=== PATIENT | female | born 1985 | race Caucasian/White ===

== ENCOUNTER 2018-01-31 13:56 | Emergency (ER) | payer OTHER ==
[~2018-01-31] VITALS: Ht 170.2 cm; Wt 145.0 kg
[2018-01-31 14:12] VITALS: TEMP 37; Ht 170.2 cm; Wt 145.0 kg
--- NOTE | 2018-01-31 14:35 | EMERGENCY ROOM VISIT NOTE ---
ED Visit Note First contact with patient: 14:19 CHIEF COMPLAINT: Left leg pain HISTORY OF PRESENT ILLNESS: This 32-year-old female patient presents to the emergency department, ambulatory, complaining of pain in the posterior left thigh. The patient states the pain began on Saturday. She states it radiates into her groin and down to the proximal calf. She describes it as "like a charley horse" the patient denies any history of the same. She denies any history of blood clots. She did recently travel to the [facility], 9 hours in each direction and returned on Saturday. She has been taking Aleve and diclofenac without relief of her symptoms. She states that the symptoms occasionally improved with standing, but sitting and lying flat seems to make the symptoms worse. She rates the pain 8/10. She is not currently taking any control or hormones. She is not a smoker. She does report a family history of blood clots in an aunts and her paternal grandfather. REVIEW OF SYSTEMS: A 10 system review of systems was performed with positives and pertinent negatives listed in the history of present illness. All other systems were reviewed and are negative. ALLERGIES: None MEDICATIONS: Synthroid, metformin, vitamins, Zantac, Effexor PMH: Hypothyroidism, depression SOCIAL HISTORY: The patient lives locally with family. She denies drug, alcohol , tobacco use. PHYSICAL EXAM: VITALS: Vitals are noted on the nurse's note and reviewed by myself. Vital signs stable. GENERAL: This is a 32 year old obese white female, in no acute distress, nondiaphoretic, well-developed well-nourished. SKIN: The skin was without rashes, erythema, edema, or bruising. There is no tenting of the skin. Capillary reflex less than 2 seconds. HEAD: Normocephalic atraumatic. MOUTH: Mucous membranes moist. Tonsils are not enlarged. Pharynx without erythema or exudate. Uvula midline. Airway patent. Tongue does not deviate. NECK: Supple without nuchal rigidity. No lymphadenopathy. No thyromegaly. Cervical spine is nontender. No JVD. HEART: Regular rate and rhythm without murmurs gallops or rubs. LUNGS: Clear to auscultation bilaterally without wheezes, rales or rhonchi. No dullness to percussion. No retractions or accessory muscle use. ABDOMEN: Positive bowel sounds x 4. Normal tympanic percussion. Soft, nontender, without masses or organomegaly. Garay sign negative. No guarding or rebound tenderness. MUSCULOSKELETAL: No muscle atrophy, erythema, or edema noted. Mild tenderness of the posterior left thigh. No edema, erythema, or ecchymosis noted. Full range of motion without joint tenderness in all extremities. No tenderness to palpation except as noted. Normal gait. Strength 5/5 throughout. NEURO: Patient was alert and oriented to person place and time. Normal sensation to light and sharp touch. Deep tendon reflexes 2+ throughout. No focal neurological deficits. RADIOLOGY: L VENOUS DOPP LOWER EXT UNILAT HISTORY: 32 years-old Female left leg pain, recent 9 hour travel acute left leg pain and swelling COMPARISON: None available TECHNIQUE: Multiple real-time sonographic images of the left lower extremity deep venous structures were obtained assessing grayscale appearance, color and spectral flow FINDINGS: Normal flow, compressibility, phasicity and augmentation of the left lower extremity deep venous structures. Patient body habitus mildly limits the study. IMPRESSION: No sonographic evidence of deep venous thrombosis. The above report was generated using voice recognition software. It may contain grammatical, syntax or spelling errors. Electronically signed by: Ernesto Nunn M.D. 01/31/2018 3:06 PM Dictated Date/Time: 01/31/2018 3:05 PM EMERGENCY DEPARTMENT COURSE: Patient was seen and evaluated as above. This is a 32-year-old obese female patient who presents complaining of posterior left thigh pain. She was sent to the emergency department by urgent care for evaluation for DVT. She did recently go on a trip where she traveled in a car for [address]. She returned 3 days prior to her symptoms beginning. She denies any dyspnea or tachycardia. She denies a history of DVT. Ultrasound here in the emergency department was reviewed by myself and radiologist as above. There is no evidence of DVT. Based on the patient's symptoms and examination, I suspect a muscle strain as the cause of her pain. She will be symptomatically treated at this time scheduled anti-inflammatory medications and an Reynaldo wrap for compression. The patient was encouraged to follow-up with her PCP/orthopedic surgeon next week, especially if no improvement in symptoms. I did offer crutches and the patient declined. I did offer to perform imaging and lab work and the patient declined. I do not feel that these studies will provide us with more helpful information. Discharge instructions reviewed, patient was discharged home in good condition. I attest that I have personally reviewed the patient's current medication list. Blood Pressure Screening: Patient was found to have a slightly elevated blood pressure due to circumstances. I do not believe that the patient requires hypertension monitoring. Etiologies such as DVT, joint effusion, infection, trauma, muscular, lymphedema , idiopathic, as well as others were entertained. DIAGNOSIS: Left posterior thigh pain/muscle strain The chart was completed utilizing [employer] voice recognition software. Grammatical errors, random word insertions, pronoun errors, and incomplete sentences are an occasional consequence of this system due to software limitations, ambient noise, and hardware issues. Any formal questions or concerns about the content, text, or information contained within the body of this dictation should be directly addressed to the provider for clarification. Current/Historical Medications Scheduled Levothyroxine Sodium (Synthroid), 25 MCG PO DAILY Metformin Hcl (Glucophage Er), 750 MG PO BID Vit W/ Ferrous Fumara (), 1 TAB PO DAILY Ranitidine (Zantac), 150 MG PO DAILY Venlafaxine Hcl (Effexor Extended Rel), 75 MG PO DAILY Allergies Coded Allergies: No Known Allergies (Unverified , 01/31/18) Vital Signs Date Time Temp Pulse Resp B/P (MAP) Pulse Ox O2 Delivery O2 Flow Rate FiO2 01/31/18 15:45 88 18 132/90 100 Room Air 01/31/18 14:12 37.0 84 16 156/104 99 Room Air Departure Information Impression Primary Impression: Left hamstring muscle strain Additional Impression: Left leg pain Dispostion Home / Self-Care Condition GOOD Referrals No Doctor, Assigned (PCP) Patient Instructions ED Strain Muscle Ext, My [facility] Additional Instructions You were seen in the ED today for left thigh pain. As discussed, ultrasound was negative for clot. I suspect a muscle strain/sprain as the cause of your symptoms. Diclofenac may be used for pain. Use 75mg every six hours as needed. Take with food. Avoid using more than 150mg in a 24 hour period. Do not use 150mg per day for more than three consecutive days without physician direction. Prolonged inappropriate use can lead to stomach upset or ulcers. (AND/OR) Acetaminophen(Tylenol) may be used for fever or pain. Use 1000mg every six hours as needed. Avoid using more than 3000mg in a 24 hour period. Ice compresses for 20 minutes at a time four times daily for 2-3 days. Use the reynaldo wrap to provide compression and support and to help with your discomfort. Rest and elevate your injury. Return to the ER immediately for any numbness, tingling, severe pain, extreme swelling in the extremity or as needed. Call your local orthopedic surgeon if no improvement in 5-7 days. Follow-up with your primary care physician in 2 to 3 days for a recheck of your current condition. Problem Qualifiers Primary Impression: Left hamstring muscle strain Encounter type: initial encounter Qualified Codes: S76.312A - Strain of muscle, fascia and tendon of the posterior muscle group at thigh level, left thigh, initial encounter
[2018-01-31] MEDS ORDERED: METF750T PO (14:42)
[2018-01-31] MEDS ORDERED: EFFSR75 PO (14:42)
[2018-01-31] MEDS ORDERED: PREN1TAB29 PO (14:42)
[2018-01-31] MEDS ORDERED: RANI150T85 PO (14:42)
[2018-01-31] MEDS ORDERED: LEVO25TA PO (14:42)
--- NOTE | 2018-01-31 15:07 | DIAGNOSTIC IMAGING REPORT ---
L VENOUS DOPP LOWER EXT UNILAT HISTORY: 32 years-old Female left leg pain, recent 9 hour travel acute left leg pain and swelling COMPARISON: None available TECHNIQUE: Multiple real-time sonographic images of the left lower extremity deep venous structures were obtained assessing grayscale appearance, color and spectral flow FINDINGS: Normal flow, compressibility, phasicity and augmentation of the left lower extremity deep venous structures. Patient body habitus mildly limits the study. IMPRESSION: No sonographic evidence of deep venous thrombosis. The above report was generated using voice recognition software. It may contain grammatical, syntax or spelling errors. Electronically signed by: Ernesto Nunn M.D. 01/31/2018 3:06 PM Dictated Date/Time: 01/31/2018 3:05 PM
[2018-01-31 15:45] VITALS: BP 132/90; PULSE 88; O2SAT 100
== END 2018-01-31 15:47 | disposition home or self-care (01) ==
LOC: C.EDB 13:59 → C.EDC 15:47
DX: S76.312A Strain of muscle, fascia and tendon of the posterior muscle group at thigh level, left thigh, initial encounter (principal); X50.1XXA Overexertion from prolonged static or awkward postures, initial encounter; M79.605 Pain in left leg; E03.9 Hypothyroidism, unspecified; F32.9 Major depressive disorder, single episode, unspecified; Z79.899 Other long term (current) drug therapy

== ENCOUNTER → 2018-05-09 | Outpatient (CLI) | payer OTHER ==
[~2018-05-09] MED LIST: EFFSR75 PO; LEVO25TA PO; METF750T PO; PREN1TAB29 PO; RANI150T85 PO
[2018-05-09 10:03] LABS: FOLLICLE STIMULAT HORMONE 3.2 IU/L; PROLACTIN 7.39 ng/mL
== END | disposition home or self-care (01) ==
LOC: C.LAB1850 08:22
PROVIDERS: ATTEND Obstetrics & Gynecology
DX: Z31.41 Encounter for fertility testing (principal)